=== PATIENT | female | born 1950 | race Caucasian/White ===

== ENCOUNTER 2017-01-03 09:44 | Day surgery (SDC) | payer MEDICARE, MEDICAID ==
--- NOTE | 2017-01-01 15:38 | PCM.ANEPRE ---
Anesthesia Pre-Op Review Reason for Review: STOP BANG 11/18 Anesthesia Recommendations: Proceed with Procedure Additional Comments stop bang 11/18 with no sleep study. would consider eldon protocol Cortez Orlando MD Jan 01, 2017 15:38
[2017-01-03] VITALS (7 sets, daily range): BP systolic 125–149; BP diastolic 63–97; PULSE 73–100; RESP 14–21; O2SAT 95–99
[~2017-01-03] VITALS: Ht 172.7 cm; Wt 108.0 kg
[~2017-01-03 09:44] MED LIST: CALC-140 PO; CHOL100045 PO; ESTR1TAB24 PO; Lactated Ringer's 1,000 ML IV SCH; PEDI1TAB25 PO; PROG100C3 PO
[2017-01-03] MEDS ORDERED: MetoCLOpramide 5 mg/mL 2 mL Inj ONE (09:45)
[2017-01-03] MEDS ORDERED: Propofol 10,000 mCg/mL 20 mL Inj ONE (09:45)
[2017-01-03] MEDS ORDERED: Rocuronium 10 mg/mL 5 mL Inj ONE (09:45)
[2017-01-03] MEDS ORDERED: EPHEDrine/NS 5 mg/mL 5 mL Syringe ONE (09:45)
[2017-01-03] MEDS ORDERED: fentaNYL-PF 50 mCg/mL 2 mL Inj ONE (09:45)
[2017-01-03] MEDS ORDERED: Neostigmine 1 mg/mL 10 mL Inj ONE (09:45)
[2017-01-03] MEDS ORDERED: Dexamethasone 4 mg/mL Inj ONE (09:45)
[2017-01-03] MEDS ORDERED: Ondansetron 2 mg/mL 2 mL Inj ONE (09:45)
[2017-01-03] MEDS ORDERED: Glycopyrrolate 0.2 MG/ML 1mL Inj ONE (09:45)
[2017-01-03] MEDS ORDERED: Bupivacaine-MPF 0.5% W/EPI 30 mL Inj INFILTRATE ONE (12:31)
[2017-01-03] MEDS ORDERED: Lactated Ringer's 1,000 ML IV SCH (12:38)
[2017-01-03] MEDS ORDERED: Lactated Ringer's 500 ML IV PRN (12:38)
--- NOTE | 2017-01-03 12:38 | PCM.HPANE ---
Patient Data Surgeon Admitting Provider: Attending Provider:Tushar Hutchinson MD Primary Care Physician:Tushar Hutchinson MD Other Provider:Cassidy [place] Anesthesia Reason for Visit Primary Hyperparathyroidism, Left Thryoid Nodule Ht/WT & BMI Height (Feet): 5 Height (Inches): 8 Weight (Kilograms): 110.222 Body Mass Index 36.00 Allergies Uncoded Allergies: TETRACYCLINE=RASH (Allergy, Severe, rash, 01/01/17) Past Anesthesia History Anesthesia History: Denies:: Anesthesia Reactions, Malignant Hyperthermia Diabetes History Hx Diabetes?: No MRSA MRSA: No Medications Reported Medications Cholecalciferol (Vitamin D3) (Vitamin D)1,000 Unit Capsule2,000 Unit PO DAILY # 1 BOTTLE Ref 0 01/01/17 Progesterone,Micronized (Prometrium)100 Mg [id number] Mg PO DAILY 01/01/17 Pediatric Multivitamin Comb#30 (Gummies Children Multivitamin)1 Each Tab.chew1 Each PO DAILY 01/01/17 Estradiol 1 Mg Tablet1 Mg PO DAILY Ref 0 01/01/17 Calcium Carbonate/Vitamin D3 (Calcium + Vitamin D Tablet)1 Each Tablet1 Each PO DAILY 01/01/17 History History of ENT Problems?: Yes HEENT History: Positive for:: Sinus Problem Denies:: Abnormal Airway Cataracts Difficult Intubation Dysphagia Glaucoma Hearing Problem (HX B/L EAR DRAINAGE-INTERMITTANT) TMJ Denture Type: None Teeth Condition: Within Normal Limits Hx of Heart Problems?: Yes Cardiovascular History: Positive for:: Peripheral Vascular (VARICOSITIES) Denies:: Heart Murmur Hypertension Irregular Heartbeat (PT REPORTS PALPITATIONS) Other Cardiac History: S/P EXC BLOOD VESSEL TUMOR LT THUMB Hx of Respiratory Problem?: Yes Respiratory History: Positive for:: Dyspnea (HERNANDEZ) Denies:: Use of C-PAP Machine (SNORES) Hx Neurologic Problems?: No Hx of GI Problems?: Yes Hx of Problems?: No Female Hx: Denies:: Currently Skin History: Denies:: History Skin Disorders? Pressure Ulcers Hx Musculoskeletal Problems?: No Hx of Psycho/Social Problems?: Yes Psycho Social History: Positive for:: Anxiety Hx Surgeries?: Yes (EXC BLOOD VESSEL TUMOR LT THUMB) Hx Any Other Health Problems?: Yes Other History: Positive for:: Thyroid Disease (LT THYROID NODULE/PRIMARY HYPERPARATHYROIDISM=CURRENT PROBLEM) Denies:: Cancer Endocrine Disease Hospitalization History Blood Transfusions: Denies:: Blood Transfusions Hx Diabetes: No Hx Alcohol Use: Yes (RARELY)Have You Smoked inLast 12 mo: YesApprox How Many Cigarettes/day: 1/2 PPD Stop/Bang S-Snoring: Do You Snore Loudly: Yes T-Tired: feel tired, fatigued: Yes O-Obsered: Observed not breath: No P-Blood Pressure: treated: No B- Body Mass Index > 35 kg/m2: Yes A- Age over 50: Yes N- Neck Large Circumference: Yes G- Gender Male: No LEONID Total Score: 5 Risk Assessment Category Category 1A: Patient has history of documented sleep apnea, and HAS NOT received any narcotic, sedative or anesthesia administration during this stay. Category 1B: Patient has history of documented sleep apnea, and HAS received any narcotic , sedative or anesthesia administration during this stay Category 2: Patient has SUSPECTED Obstructive Sleep Apnea, and HAS received any narcotic , sedative or anesthesia administration during this stay. Category 3: Patient has SUSPECTED Obstructive Sleep Apnea and HAS NOT received narcotic, sedative or anesthesia administration during this stay. Category 4: Outpatient in Procedural Areas with known sleep apnea or who screen positive for High Risk via the STOP/BANG questionnaire. Exam Exam General Appearance: Alert, Oriented X3, Cooperative, No Acute Distress HEENT/AIRWAY: MP 3 Lungs: Clear to Auscultation Heart: Exam Unremarkable Plan Impression Patient chart reviewed, patient interviewed and anesthestic plan with risks, benefits, and alternatives discussed, and informed consent obtained. ASA Physical Status: ASA2 Mod Systemic Disease Anesthetic Plan: GA Bene/Risks/Altern/Consents: Yes HP Complete Prior to Induction: Yes Aamir Garcia MD Jan 03, 2017 09:15
[2017-01-03] MEDS ORDERED: HYDROmorphone 1 mg/mL Inj IVPUSH PRN (12:40)
[2017-01-03] MEDS ORDERED: MetoCLOpramide 5 mg/mL 2 mL Inj IVPUSH PRN (12:40)
[2017-01-03] MEDS ORDERED: Ondansetron 2 mg/mL 2 mL Inj IVPUSH PRN (12:40)
[2017-01-03] MEDS ORDERED: Phenylephrine 10,000 mCg/mL Inj IVPUSH PRN (12:40)
[2017-01-03] MEDS ORDERED: fentaNYL-PF 50 mCg/mL 2 mL Inj IVPUSH PRN (12:40)
[2017-01-03] MEDS ORDERED: Dexamethasone 4 mg/mL Inj IVPUSH PRN (12:40)
[2017-01-03] MEDS ORDERED: EPHEDrine Sulfate 50 mg/mL Inj IVPUSH PRN (12:40)
[2017-01-03] MEDS ORDERED: HYDROcodone-APAP 5-325 mg Tablet PO PRN (14:30)
[2017-01-03] MEDS ORDERED: Ketorolac 15 mg/mL Inj IVPUSH PRN (14:30)
--- NOTE | 2017-01-03 14:30 | PCM.DISURG ---
Surgical Discharge Instruction Date of Service Jan 03, 2017 Dates of Hospitalization Date of Hospital Admission Providers Admitting Physician: Primary Care Physician: Tushar Hutchinson MD Attending Physician: Tushar Hutchinson MD Discharge Diagnosis Discharge Diagnosis Hyperparathyroidism, left thyroid nodule Diet Discharge Diet: No restrictions Activity Discharge Activity-General: No restrictions, Activity as pain allows Dressing and Incisional Care Dressing Instructions: Dermabond peel off gradually Hygiene: May shower Follow Up Plan Follow Up Plan With Dr. Hutchinson in surgery clinic in 10-14 days Call your provider for: Fever (over 101.5), Discharge @ incision, pus discharge Tushar Hutchinson MD Jan 03, 2017 14:30
--- NOTE | 2017-01-03 14:38 | PCM.SURGOP ---
Surgical Operative Report Date of Service: Jan 03, 2017 Pre Operative Diagnosis Primary hyperparathyroidism, left inferior thyroid nodule Post Operative Diagnosis Same, right superior parathyroid adenoma Procedure: Parathyroid exploration, left partial thyroid lobectomy Surgeon and Boom Stick Man: Surgeon: Tushar Hutchinosn MD Assistants: Lashell Agarwal MD; Rusty Gonzalez PA-C Indication for Procedure 66-year-old woman who had primary hyperparathyroidism, with imaging findings consistent with a parathyroid adenoma in the inferior neck but very posterior, corresponding to a descended superior gland, as well as a left thyroid nodule measuring 1.5 cm. The thyroid nodule could not be biopsied by fine-needle aspiration because it was deep to the clavicle. After discussion of risks and benefits, she agreed to proceed with parathyroid exploration and partial left thyroid lobectomy, because she had a strong wish to avoid thyroid lobectomy and possible need for thyroid hormone supplementation. Findings: There was a parathyroid adenoma corresponding to the right superior gland measuring 2.0 x 1.0 x 0.8 cm. At the start of the operation, PTH was 120. At the end of the operation, PTH was 30. The left inferior thyroid nodule was smooth, soft, cystic, measuring 1.3 x 1.5 x 1.2 cm. Procedure Details After smooth induction of general endotracheal anesthesia, she was placed in the modified beachchair position with the neck extended, and was prepped and draped in wide sterile fashion. A procedural pause was performed according to the SCOAP checklist, and all were found to be in agreement. A transverse incision was made in the inferior neck in the skin lines. Dissection was carried with electrocautery through the subcutaneous tissue until the platysma muscle was divided. Subplatysmal skin flaps were raised superiorly and inferiorly. The median raphae was incised. The left sternohyoid and sternothyroid muscles were sequentially elevated off the underlying right thyroid lobe. The right middle thyroid vein was divided with the LigaSure device. A blood sample was drawn from the right internal jugular vein and sent for stat PTH, which was 120. The right inferior parathyroid gland was visualized just along the inferior border of the thyroid, and it looked normal. The thyroid lobe was retracted medially, and dissection deep along the lateral border of the esophagus revealed that parathyroid adenoma, which was inferior to the inferior pole of the thyroid, but consistent with the superior gland. It had a vascular pedicle coming off the superior aspect. It was meticulously dissected free from the surrounding tissues with the LigaSure device, and its vascular pedicle was divided with the LigaSure. Ex vivo, the parathyroid gland measured 2.0 x 1.0 x 0.8 cm. It was sent for permanent pathology. After 12 minutes, a second blood sample was obtained from the right internal jugular vein and sent for stat PTH, which was 76. In the meantime, excision of the left inferior thyroid nodule was performed. The left sternohyoid and sternothyroid muscles were elevated off the left thyroid lobe. The left middle thyroid vein was divided with the LigaSure device. The left inferior thyroid vein branches were divided with the LigaSure device. The isthmus of the thyroid was skeletonized. A left inferior thyroid nodule was soft and well-defined, mostly cystic. Once the inferior pole was mobilized, partial thyroid lobectomy was performed using the LigaSure device, dividing through thyroid parenchyma. The thyroid nodule ex vivo measured 1.3 x 1.5 x 1.2 cm. It was sent for permanent pathology. Hemostasis was adequate. The median raphae was closed with interrupted 3-0 Vicryl sutures. The platysma muscle was closed with interrupted 3-0 Vicryl sutures. The skin incision was closed with a running 4-0 Monocryl subcuticular stitch. Dermabond was applied to the skin. Because in the meantime the second PTH should come back at 76, a third sample was drawn from the right hand, since the second PTH may have been drawn prematurely, and the final PTH level came back at 30, consistent with biochemical cure. At the end of the case all needle and sponge counts were correct 2. The patient was awakened from anesthesia without difficulty, and taken to the recovery room in satisfactory condition, having tolerated the procedure well. Complications There were no periprocedural complications identified. Surgical Specimen Removed: Yes Specimen sent to Pathology: Yes Surgical Specimen description: Right superior parathyroid adenoma. Left inferior thyroid nodule. Anesthetic Plan: GA Grafts, Implants: None Output, Estimated Blood Loss: 10 Blood Administration during murray: No Drains: None Catheters: None copies to: William Russo MD; Dawit Martell ND, Joshua D MD Jan 03, 2017 14:38
--- NOTE | 2017-01-03 15:04 | PCM.ANEP1 ---
Post Anesthesia PACU Phase 1 Assessment Vital Signs Vital Signs Date Time Temp Pulse Resp B/P Pulse Ox O2 Delivery O2 Flow Rate FiO2 01/03/17 14:45 73 14 136/70 95 Nasal Cannula 2 01/03/17 14:39 76 15 125/70 95 Nasal Cannula 2 01/03/17 14:35 81 18 127/63 Nasal Cannula 2 01/03/17 14:27 36.0 100 21 146/97 Room Air 01/03/17 10:56 36.5 75 16 149/91 99 Room Air Anesthetic Administered: GA Level of Alertness: Sleepy, easy to arouse MATUTE's with Equal Strength: Yes Pain: No Nausea or Vomiting: No CV Function & Hydration Stable: Yes Airway Device: Oxygen Delivery: Nasal Cannula Lungs: Clear to Auscultation Dermatome Level: Full Sensation PACU Phase 2 Assessment Complications: No Patient Instructions Provided: N/A Aamir Garcia MD Jan 03, 2017 15:04
--- NOTE | 2017-01-06 16:53 | PATH ---
SURGICAL PATHOLOGY Attending Physician:Arthur Edouard CASE STATUS: Signed Out PATIENT NAME: COLEEN RANGEL PID: [id number] : 1950 DATE COLLECTED:01/03/2017 00:00 SPECIMEN: 1: Parathyroid Gland 2: Thyroid, Biopsy CLINICAL HISTORY: HYPERPARATHYROIDISUM, LEFT THYROID NODULE 1). PARATHYROID RIGHT SUPERIOR PARATHYROID ADENOMA, OUT 13:04 FORMALIN 13:08 2). LEFT INFERIOR THYROID NODULE, OUT 13:25 FORMALIN 13:27 FINAL DIAGNOSIS: 1.RIGHT SUPERIOR PARATHYROID: PARATHYROID ADENOMA. 2.LEFT INFERIOR THYRYOID NODULE: COLLOID NODULE. NO EVIDENCE OF MALIGNANCY. ICD10 D35.1 E04.1 GROSS DESCRIPTION: The specimens are received in formalin, labeled with the patient's name, and sublabeled as the following: (1) parathyroid-right superior parathyroid adenoma; (2) left inferior thyroid nodule. (1) The specimen consists of a reza-yellow rubbery parathyroid gland (1.1 g, 1.8 x 1.2 x 0.7 cm). The cut surface is reza-yellow smooth and lobular with focal hemorrhaging. Ink code: black-exterior. Section code: (1A) parathyroid gland, bisected. Specimen entirely submitted. (2) The specimen consists of a montoya purple smooth shiny rubbery cyst (1.3 x 1.2 x 1.2 cm) containing red-brown clear fluid and erza-white rubbery semi-translucent tissue (0.8 x 0.4 x 0.3 cm) attached to the lining. The remainder of the lining is smooth and flat. The wall is up to 0.2 cm thick and the semitranslucent. Ink code: black-exterior. Section code: (2A) cyst, bisected. Specimen entirely submitted. 01/04/17 JM MICRO DESCRIPTION: See diagnosis. ICD-9 CODES: CPT CODES: 1: 74724 2: 06413 Electronically Signed Out Nadine Shanks MD [facility] [address], [place] [address] Technical component performed at [facility], [address], [place], [address]
== END 2017-01-03 23:59 | disposition home or self-care (01) ==
LOC: SAS 09:44
PROVIDERS: ATTEND Student in an Organized Health Care Education/Training Program
PROC: 0GTL0ZZ Resection of Right Superior Parathyroid Gland, Open Approach (ICD-10-PCS; 2017-01-03)
PROC: 0GBG0ZZ Excision of Left Thyroid Gland Lobe, Open Approach (ICD-10-PCS; principal; 2017-01-03 11:45)
DX: E04.1 Nontoxic single thyroid nodule (principal); D35.1 Benign neoplasm of parathyroid gland; E21.0 Primary hyperparathyroidism; F17.210 Nicotine dependence, cigarettes, uncomplicated
CPT/HCPCS: 36415; 60210; 60500; 83970; J1100; J1885; J2250; J2405; J2710; J2765; J3010; J7120